=== PATIENT | female | born 1980 | race Caucasian/White ===

== ENCOUNTER 2016-05-09 14:41 | Observation (INO) | payer OTHER ==
[~2016-05-09] VITALS: Ht 160 cm; Wt 80.0 kg
[2016-05-09] VITALS (7 sets, daily range): BP systolic 94–128; BP diastolic 63–86
[~2016-05-09 14:41] MED LIST: FLEXERIL10 MG PO; FOLIC ACID0.4 MG PO; KEFLEX500 MG PO; MOTRIN600 MG PO; NORCO 5/3251 TABLET PO; PHENTERMINE HCL15 MG PO; PRENATAL + DHA1 EAC1 PO; ZOHYDRO ER10 M1 PO
[2016-05-09 15:32] LABS: EOSINOPHIL (%) 2.5 % (0-5); EOSINOPHIL COUNT 0.2 K/uL (0-0.3); HEMATOCRIT 41.2 % (36.0-46.0); LYMPHOCYTE COUNT 1.9 K/uL (1.0-2.8); MCH 31.7 PG (29.0-34.0); MCHC 34.7 G/DL (30.0-36.0); MCV 91.4 FL (83-99); MEAN PLAT.VOLUME 11.5 uM^3 (9.5-12.4); MONOCYTE COUNT 0.4 K/uL (0-0.8); NEUTROPHIL (%) 61.4 % (45-76); NEUTROPHIL COUNT 3.9 K/uL (1.8-6.4); PLATELET COUNT 148 K/uL (156-360); RBC DIS.WIDTH-CV 12.7 % (11.8-14.6); RBC DIS.WIDTH-SD 41.6 % (39-53); RED BLOOD COUNT 4.51 M/uL (3.80-5.20); WHITE BLOOD COUNT 6.3 K/uL (4.1-10.2)
[2016-05-09 15:42] LABS: CHLORIDE 106 mEq/L (99-109); POTASSIUM 3.9 mEq/L (3.7-5.4); SODIUM 140 mEq/L (136-147)
[2016-05-09 15:45] LABS: GLUCOSE 86 mg/dL (70-99)
[2016-05-09 15:46] LABS: ANION GAP 9 MEQ/L (2-14)
[2016-05-09 15:47] LABS: TOTAL BILIRUBIN 0.3 mg/dL (0.0-1.0)
[2016-05-09 15:48] LABS: ALKALINE PHOSPHATASE 43 IU/L (3-129); GFR ESTIMATE (CALCULATED) > 59 mL/min/
[2016-05-09 15:49] LABS: UREA NITROGEN (BUN) 9 mg/dL (9-23)
[2016-05-09 15:58] LABS: TROP-I INTERPRETATION NEGATIVE; TROPONIN-I < 0.01 ng/mL (0.0-0.30)
[2016-05-09 20:21] LABS: ADD MIUA? YES; BILIRUBIN NEGATIVE; BLOOD NEGATIVE; COLOR YELLOW ((YELLOW)); GLUCOSE (STRIP) NEGATIVE; KETONES NEGATIVE; LEUKOCYTES SMALL; NITRITE POSITIVE; PROTEIN (STRIP) NEGATIVE; SPECIFIC GRAVITY 1.016 (1.000-1.030); UROBILINOGEN 0.2 MG/DL (0.2-1.0)
[2016-05-09 20:30] LABS: BACTERIA RARE /HPF; EPITHELIAL CELLS 1+ /HPF; MUCUS 4+ /LPF; RED BLOOD CELLS 0-5 /HPF (0-5); UCUL ADDED? NO; WHITE BLOOD CELLS 15-20 /HPF (0-5)
[2016-05-09 23:23] LABS: TROP-I INTERPRETATION NEGATIVE; TROPONIN-I < 0.01 ng/mL (0.0-0.30)
[2016-05-10] VITALS: BP 112/57
[2016-05-10 03:33] LABS: TROP-I INTERPRETATION NEGATIVE; TROPONIN-I < 0.01 ng/mL (0.0-0.30)
[2016-05-10 04:00] VITALS: BP 105/50
[2016-05-10 09:14] VITALS: BP 120/59
== END 2016-05-10 10:31 | disposition home or self-care (01) ==
LOC: EME 14:41 → EXP 14:41 → 5WEST 19:27 → EDOF 19:27 → 5WEST 21:19
PROVIDERS: Physician Assistant
DX: R07.89 Other chest pain (principal); G43.909 Migraine, unspecified, not intractable, without status migrainosus; F17.210 Nicotine dependence, cigarettes, uncomplicated
CPT/HCPCS: 71020; 71275; 80053; 81003; 84484; 85025; 93005; 99281; 99285; G0378; J7030